=== PATIENT | male | born 1950 | race Caucasian/White ===

== ENCOUNTER 2017-08-09 09:32 | Emergency (ER) | payer OTHER, MEDICARE ==
[~2017-08-09] VITALS: Ht 170.2 cm; Wt 97.5 kg
--- NOTE | 2017-08-09 09:47 | ED UPPER/LOWER EXTREMITY COMPL ---
History of Present Illness General Chief Complaint: Lower Extremity Problems Stated Complaint: L THIGH PAIN X 1 WEEK, NO INJURY Source: patient, family, old records Exam Limitations: no limitations Allergies Coded Allergies: No Known Allergies (08/09/17) Reconcile Medications Allopurinol 100 MG TABLET 1 TAB PO QPM GOUT (Reported) Amantadine HCl (Amantadine) 100 MG CAPSULE 1 CAP PO BID PARKINSONS (Reported) Amlodipine Besylate 5 MG TABLET 1 TAB PO DAILY HEART (Reported) Aspirin (Aspirin*) 81 MG TAB.CHEW 1 TAB PO DAILY HEART HEALTH (Reported) Benazepril HCl 40 MG TABLET 1 TAB PO QPM HEART (Reported) Carbidopa/Levodopa (Carbidopa-Levodopa 25-100 Tab) 25 MG-100 MG TABLET 0.5 TAB PO TID PARKINSONS (Reported) Fesoterodine Fumarate (Toviaz) 8 MG TAB.ER.24H 1 TAB PO DAILY UNKNOWN ( Reported) Metoprolol Tartrate 100 MG TABLET 0.5 TAB PO BID HEART (Reported) Oxycodone HCl 5 MG CAPSULE 1 CAP PO BID PAIN Pramipexole Di-HCl (Mirapex) 0.5 MG TABLET 1 TAB PO TID UNKNOWN (Reported) Rasagiline Mesylate 1 MG TABLET 1 TAB PO DAILY UNKNOWN (Reported) Terazosin HCl 10 MG CAPSULE 1 CAP PO DAILY UNKNOWN (Reported) Triage Note: 66 YO MALE TO TRIAGE C/O L THIGH PAIN X APPROX 1 WEEK. DENIES INJURY. Triage Nurses Notes Reviewed? yes Onset: Abrupt Duration: week(s): (1), constant Timing: recent history Severity: moderate Severity Numbers: 8 Pain/Injury Location: Right: Thigh. Method of Injury: unknown Modifying Factors: Improves With: rest. Worsens With: movement. Associated Symptoms: denies HPI: 66-year-old male with history of hypertension Parkinson's presents to ER for evaluation complaining of right anterior thigh pain for the past 1 week, 8 out of 10 throbbing continuous worse with change in position. He denies any known injury or trauma the symptoms came on after he returned home from [facility] and no recent fall. He denies any redness or warmth or rashes to his skin. He has a history of chronic edema to his legs he denies if getting worse. No calf pain numbness or tingling in the leg no back pain. Pain radiates into his groin and into his knee when he changes position he's been taking Tylenol without improvement. He denies noting any hernia or scrotal pain or urinary symptoms no chest pain shortness of breath orthopnea Contrary to triage note patient denies left thigh pain symptoms are localized to the right thigh only. (Dejan Reyna) Vital Signs & Intake/Output Vital Signs & Intake/Output Vital Signs Date Time Temp Pulse Resp B/P B/P Pulse O2 O2 Flow FiO2 Mean Ox Delivery Rate 08/09 1135 97.6 53 20 148/64 96 Room Air 08/09 0935 98.6 51 18 155/83 98 Room Air (Renetta HUITRON,Mikie Davis) Past History Travel History Traveled to [place] past 21 day No Medical History Any Pertinent Medical History? see below for history Neurological: Parkinson's disease EENT: NONE Cardiovascular: hypertension Respiratory: NONE Gastrointestinal: NONE Hepatic: NONE Renal: NONE Musculoskeletal: gout Psychiatric: NONE Endocrine: NONE Blood Disorders: NONE Cancer(s): NONE LEAD BUSINESS ANALYST/Reproductive: NONE Surgical History Surgical History: non-contributory Psychosocial History What is your primary language Wallisian Tobacco Use: Never used Family History Hx Contributory? No (Dejan Reyna) Review of Systems Review of Systems Constitutional: Reports: see HPI. Comments Review of systems: See HPI, All other systems negative. Constitutional, no chills no fever, no malaise no weight loss HEENT: no sore throat no congestion, no ear pain Cardiovascular: No chest pain , no palpitation Skin: no rashes, no change in skin Respiratory: No dyspnea no cough no sputum no hemoptysis GI: No nausea no vomiting, no diarrhea, no bloating/constipation : No dysuria No hematuria, no frequency Muscle skeletal: No joint pain, no back pain, no neck pain, Neurologic: , no headache Psych: No stress no depression,. Heme/endocrine: No bruising no bleeding Immunology: No lymphadenopathy (Dejan Reyna) Physical Exam Physical Exam General Appearance: well developed/nourished, no apparent distress, alert Comments: Well-developed well-nourished patient in no apparent distress. HEENT: Atraumatic, extraocular motion intact Neck: Supple, FROM Back: FROM Cardiovascular: Regular rate and rhythms no murmurs rubs Respiratory: No respiratory distress. Patient speaking in full complete sentences. Breath sounds clear to auscultation bilaterally: NO W/R/R Upper Extremities: full range of motion Hip/Pelvis: Atraumatic/Stable. FROM. No pain with pelvic compression Knee: Atraumatic/stable. FROM. No joint swelling, no effusion. No laxity. Negative abril/anterior drawer test. No pain with ROM Leg: Atraumatic tender to palpation over the right anterior proximal thigh there is no palpable femoral hernia no ecchymosis or erythema, pain is elicited in the anterior thigh with range of motion of the right hip, trace b/l le edema, 5 out of 5 strength in the lower extremity, normal dorsiflexion of great toe bilaterally, gross sensation is intact Ankle/Foot: Atraumatic/stable. Skin intact. FROM. No swelling, no effusion. No laxity on exam Pulses: Normal/equal DP/PT pulses bilaterally. Brisk cap refill Neuro: awake, alert, and oriented to person, place and time. There were no obvious focal neurologic abnormalities. Skin: Warm & dry;No appreciable rash on exposed skin Psych: Mood affect normal, normal memory normal judgment. (Lluvia MARK,Dejan) Progress Differential Diagnosis: arterial insufficiency, cellulitis, contusion, dislocation, DVT, sprain, tendon injury, sciatica, lumbar radiculopathy Plan of Care: Orders Procedure Date/time Status US-UNILATERAL VENOUS DOPPLER 08/10 1007 Active pt ambulatory with steady gait to room 4 x-ray, ultrasound ordered patient medicated with Toradol and tramadol Patient reports no relief of symptoms with Toradol tramadol however he is ambulatory here in the emergency room with steady gait the patient was seen and evaluated by Dr. Jackson who agrees with plan we discussed with him his x-ray and ultrasound findings he will follow-up with Dr. Godinez this week we'll send him home with a prescription of oxycodone which she's had in the past they're in agreement with plan answered all their questions cleared for discharge Diagnostic Imaging: Viewed by Me: Ultrasound. Discussed w/RAD: Ultrasound. Radiology Impression: PATIENT: VIN RUIZ PRESENT AGE: 66 PATIENT ACCOUNT NO: [id number] : 48 LOCATION: [facility] ORDERING PHYSICIAN: Dejan MARK SERVICE DATE: 08/09/17-1008 EXAM TYPE: RAD - XRY- AP PELVIS; XRY-HIP 2-3 VIEWS, RIGHT EXAMINATION: XR PELVIS CLINICAL INFORMATION: 66-year-old male patient with right hip and thigh pain. No known trauma. COMPARISON: None TECHNIQUE: AP pelvis with AP cone-down AP and frog leg lateral views of the right hip. The FINDINGS: The bones and soft tissues are normal. No fracture. Sacroiliac and hip joints are normal. Pubic symphysis is normal. No abnormal soft tissue calcifications. IMPRESSION: No suspicious bone or joint abnormalities detected. DICTATED BY: Rubio Horner MD DATE/TIME DICTATED:04/28 STRIPING MACHINE OPERATOR:VERONICA DATE/TIME TRANSCRIBED:08/09/171114 CONFIDENTIAL, DO NOT COPY WITHOUT APPROPRIATE AUTHORIZATION. <Electronically signed in Other Vendor System> SIGNED BY: Rubio Horner MD 08/09/171121, PATIENT: VIN RUIZ PRESENT AGE: 66 PATIENT ACCOUNT NO: [id number] : 48 LOCATION: [facility] ORDERING PHYSICIAN: Dejan MARK SERVICE DATE: 08/09/17 EXAM TYPE: US - US-UNILATERAL VENOUS DOPPLER EXAMINATION: US TRIPLEX LOWER EXTREMITY, RIGHT CLINICAL INFORMATION: 66-year-old male with right thigh pain. COMPARISON: None TECHNIQUE: Color-flow triplex imaging with spectral analysis and compression Doppler were performed on the lower extremity. FINDINGS: Respiratory variation, normal compression and augmented flow are noted throughout the lower extremity. The visualized common femoral vein, superficial femoral vein, profunda femoral vein, popliteal vein and midcalf peroneal and posterior tibial venous segments show no evidence of deep venous thrombosis. There is no Chavez's cyst. There is a heterogeneous ovoid well-circumscribed structure with what appears to be a fatty hilum in the right groin measuring 2.8 x 3.2 x 0.9 cm. However, there is no definite vascular flow identified. This may represent a lipoma or possibly a lymph node. This does not correspond to the region of the patient's pain. IMPRESSION: 1. No evidence of deep venous thrombosis involving the lower extremity. 2. Probable subcutaneous lipoma versus lymph node in the right groin. Consider follow-up ultrasound evaluation in 6-12 months, or sooner if there is evidence of growth, to document stability. DICTATED BY: Jose Alejandro Steward DO DATE/TIME DICTATED:08/09/171053 STRIPING MACHINE OPERATOR:VERONICA DATE/TIME TRANSCRIBED:08/09/171053 CONFIDENTIAL, DO NOT COPY WITHOUT APPROPRIATE AUTHORIZATION. <Electronically signed in Other Vendor System> SIGNED BY: Steward Jose Alejandro Nieves 08/09/17 1301 (Dejan Reyna) Departure Departure Time of Disposition: 1317 Disposition: HOME OR SELF CARE Condition: Stable Clinical Impression Primary Impression: Thigh pain Referrals: Herbert HUITRON,Cody Foster (PCP/Family) Additional Instructions: Follow-up with Dr. Godinez, rest, ice, tylenol or motrin for pain eveyr 8 hours. oxycodone for breakthrough pain-this is a narcotic and can make you drowsy. no driving while taking. . Return anytime sooner with any concerns or worsening of her symptoms. Departure Forms: Customer Survey General Discharge Information Prescriptions: Current Visit Scripts Oxycodone HCl 1 CAP PO BID #10 CAP (Dejan Reyna) PA/E [employer] WE[employer] DEVELOPER Co-Sign Statement Statement: ED Attending supervision documentation- [X] I saw and evaluated the patient. I have also reviewed all the pertinent lab results and diagnostic results. I agree with the findings and the plan of care as documented in the PA's/E [employer] DEVELOPER's documentation. Patient presents for evaluation of right thigh pain began a few days ago. Physical examination reveals only mild tenderness of the right quadriceps and over the left greater trochanter without associated soft tissue swelling erythema or ecchymoses. [] I have reviewed the ED Record and agree with the PA's/E [employer]ER[employer] WE[employer] DEVELOPER's documentation. [] Additions or exceptions (if any) to the PAs/E [employer]ER[employer] WE[employer] DEVELOPER's note and plan are summarized below: [] (Renetta HUITRON,Mikie Davis)
--- NOTE | 2017-08-09 11:22 | RADIOLOGY REPORT ---
EXAMINATION: XR PELVIS CLINICAL INFORMATION: 66-year-old male patient with right hip and thigh pain. No known trauma. COMPARISON: None TECHNIQUE: AP pelvis with AP cone-down AP and frog leg lateral views of the right hip. The FINDINGS: The bones and soft tissues are normal. No fracture. Sacroiliac and hip joints are normal. Pubic symphysis is normal. No abnormal soft tissue calcifications. IMPRESSION: No suspicious bone or joint abnormalities detected.
[2017-08-09 11:35] VITALS: BP 148/64
[2017-08-09] MEDS ORDERED: AMLODIPINE BESYL5 M1 PO (12:06)
[2017-08-09] MEDS ORDERED: ALLOPURINOL100 M1 PO (12:06)
[2017-08-09] MEDS ORDERED: TERAZOSIN HCL10 M1 PO (12:07)
[2017-08-09] MEDS ORDERED: BENAZEPRIL HCL40 MG PO (12:07)
[2017-08-09] MEDS ORDERED: METOPROLOL TAR100 M1 PO (12:07)
[2017-08-09] MEDS ORDERED: AMANTADINE100 M1 PO (12:08)
[2017-08-09] MEDS ORDERED: MIRAPEX0.5 M1 PO (12:08)
[2017-08-09] MEDS ORDERED: RASAGILINE MESYL1 MG PO (12:08)
[2017-08-09] MEDS ORDERED: TOVIAZ8 M1 PO (12:09)
[2017-08-09] MEDS ORDERED: CARBIDOPA-LEVO1 EAC7 PO (12:09)
[2017-08-09] MEDS ORDERED: ASPIRIN81 M4 PO (12:10)
--- NOTE | 2017-08-09 13:01 | ULTRASOUND REPORT ---
EXAMINATION: US TRIPLEX LOWER EXTREMITY, RIGHT CLINICAL INFORMATION: 66-year-old male with right thigh pain. COMPARISON: None TECHNIQUE: Color-flow triplex imaging with spectral analysis and compression Doppler were performed on the lower extremity. FINDINGS: Respiratory variation, normal compression and augmented flow are noted throughout the lower extremity. The visualized common femoral vein, superficial femoral vein, profunda femoral vein, popliteal vein and midcalf peroneal and posterior tibial venous segments show no evidence of deep venous thrombosis. There is no Chavez's cyst. There is a heterogeneous ovoid well-circumscribed structure with what appears to be a fatty hilum in the right groin measuring 2.8 x 3.2 x 0.9 cm. However, there is no definite vascular flow identified. This may represent a lipoma or possibly a lymph node. This does not correspond to the region of the patient's pain. IMPRESSION: 1. No evidence of deep venous thrombosis involving the lower extremity. 2. Probable subcutaneous lipoma versus lymph node in the right groin. Consider follow-up ultrasound evaluation in 6-12 months, or sooner if there is evidence of growth, to document stability.
[2017-08-09] MEDS ORDERED: OXYCODONE HCL5 M2 PO (13:20)
== END 2017-08-09 13:25 ==
LOC: ERH 09:32
DX: M79.651 Pain in right thigh (principal)
CPT/HCPCS: 72170; 73502-RT; 96372; J1885

== ENCOUNTER → 2017-11-15 | Day surgery (SDC) | payer OTHER, MEDICARE ==
[~2017-11-15] VITALS: Ht 167.6 cm; Wt 95.3 kg
[~2017-11-15] MED LIST: ALLOPURINOL100 M1 PO; AMANTADINE100 M1 PO; AMLODIPINE BESYL5 M1 PO; ASPIRIN81 M4 PO; BENAZEPRIL HCL40 MG PO; CARBIDOPA-LEVO1 EAC7 PO; METOPROLOL TAR100 M1 PO; MIRAPEX0.5 M1 PO; OXYCODONE HCL5 M2 PO; RASAGILINE MESYL1 MG PO; TERAZOSIN HCL10 M1 PO; TOVIAZ8 M1 PO
--- NOTE | 2017-11-15 08:11 | Operative Report ---
Operative/Inv Procedure Report Surgery Date: 11/15/17 Name of Procedure: Cataract extraction lens implantation left eye Pre-Operative Diagnosis: Age-related cataract left eye 20/50 vision Post-Operative Diagnosis: Same Estimated Blood Loss: none Surgeon/Physician Industrial: Aniceto HUITRON,Ashwin Anne Anesthesia: local monitored anesthesi Complications: None Operative/Procedure Note Note: The patient was brought to the operating room standard monitoring equipment was attached the patient was prepped and draped in the usual fashion for intraocular surgery. A lid speculum was placed to retract the lids. The case was begun by making a temporal incision with a 2.4 mm keratome. The eye was stabilized with a Piña ring during this incision. 1 mL of non-preserved lidocaine was introduced into the anterior chamber to provide anesthesia. The anterior chamber was then filled and deepened with viscoelastic. A curvilinear capsulorrhexis was achieved using a 30-gauge needle and is a cystotome and capsulorrhexis was finished using a Utrata forceps. A second or paracentesis incision was made temporally with a 1 mm MVR blade. The lens was then hydrodissected with balanced salt solution and found to be rotatable. The lens was emulsified using phacoemulsification and a modified four-quadrant cracking technique. The residual cortical material was removed using automated irrigation and aspiration and as much of the anterior capsular rim was cleaned as well as possible. The posterior capsule was cleaned first with the automated machine on a low setting and then manually with a Tony squeegee. The capsular bag was deepened with viscoelastic. The lens a Technis 1 16.0 Diopter placed into the bag under direct visualization and rotated so that the haptics were at 12 and 6:00. Viscoelastic was then removed from the eye by flushing it out and then by automated irrigation and aspiration. The eye was pressurized to a normal tone. 1/10 of a cc of cefuroxime solution was introduced into the anterior chamber to provide antibiotic prophylaxis. The wounds were sealed by hydrating the stroma adjacent to them and the eye was left at a proper tone after the wounds were checked and found not to be leaking. The lid speculum was removed from the orbit. Antibiotic and steroid drops were placed on the eye and then the eye was shielded. Monitoring equipment was removed from the patient and the patient was removed from the operative suite to the holding area. The patient tolerated the procedure well and will be seen in the office tomorrow.
== END ==
LOC: STS 01:47
DX: H25.9 Unspecified age-related cataract (principal); I10 Essential (primary) hypertension; G20 Parkinson's disease; G47.30 Sleep apnea, unspecified; M10.9 Gout, unspecified
CPT/HCPCS: J2250; V2632

== ENCOUNTER → 2017-11-23 | Day surgery (SDC) | payer OTHER, MEDICARE ==
[~2017-11-23] VITALS: Ht 167.6 cm; Wt 95.3 kg
--- NOTE | 2017-11-23 13:58 | Operative Report ---
Operative/Inv Procedure Report Surgery Date: 11/23/17 Name of Procedure: Cataract extraction lens implantation right eye Pre-Operative Diagnosis: Age-related cataract right eye 20/25 vision 20/50 glare vision Post-Operative Diagnosis: Same Estimated Blood Loss: none Surgeon/Melter Operator: Aniceto HUITRON,Ashwin Anne Anesthesia: local monitored anesthesi Complications: None Operative/Procedure Note Note: The patient was brought to the operating room standard monitoring equipment was attached the patient was prepped and draped in the usual fashion for intraocular surgery. A lid speculum was placed to retract the lids. The case was begun by making 2 partial-thickness corneal relaxing incisions at 180. A temporal incision with a 2.4 mm keratome. The eye was stabilized with a Piña ring during this incision. 1 mL of non-preserved lidocaine was introduced into the anterior chamber to provide anesthesia. The anterior chamber was then filled and deepened with viscoelastic. A curvilinear capsulorrhexis was achieved using a 30-gauge needle and is a cystotome and capsulorrhexis was finished using a Utrata forceps. A second or paracentesis incision was made temporally with a 1 mm MVR blade. The lens was then hydrodissected with balanced salt solution and found to be rotatable. The lens was emulsified using phacoemulsification and a modified four-quadrant cracking technique. The residual cortical material was removed using automated irrigation and aspiration and as much of the anterior capsular rim was cleaned as well as possible. The posterior capsule was cleaned first with the automated machine on a low setting and then manually with a Tony squeegee. The capsular bag was deepened with viscoelastic. The lens a Technis 1 17.5 Diopter placed into the bag under direct visualization and rotated so that the haptics were at 12 and 6:00. Viscoelastic was then removed from the eye by flushing it out and then by automated irrigation and aspiration. The eye was pressurized to a normal tone. 1/10 of a cc of cefuroxime solution was introduced into the anterior chamber to provide antibiotic prophylaxis. The wounds were sealed by hydrating the stroma adjacent to them and the eye was left at a proper tone after the wounds were checked and found not to be leaking. The lid speculum was removed from the orbit. Antibiotic and steroid drops were placed on the eye and then the eye was shielded. Monitoring equipment was removed from the patient and the patient was removed from the operative suite to the holding area. The patient tolerated the procedure well and will be seen in the office tomorrow.
== END ==
LOC: STS 01:18
DX: H25.9 Unspecified age-related cataract (principal); I10 Essential (primary) hypertension; G20 Parkinson's disease; G47.33 Obstructive sleep apnea (adult) (pediatric)
CPT/HCPCS: J2250; V2632